=== PATIENT | female | born 1950 | race African-American/Black ===

== ENCOUNTER → 2016-08-06 | Outpatient (CLI) | payer MEDICARE ==
--- NOTE | ~2016-08-06 | EKG ---
PATIENT: ANGELINA EPSTEIN UNIT #: [id number] Ventricular Rate: 67 BPM Atrial Rate: 67 BPM P-R Interval: 158 ms QRS Duration: 88 ms Q-T Interval: 402 ms QTC Calculation(Bezet): 424 ms P [place]: 45 degrees Calculated R [place]: 1 degrees Calculated T [place]: 33 degrees Diagnosis Line: Normal sinus rhythm Diagnosis Line: Possible Left atrial enlargement Diagnosis Line: Borderline ECG Diagnosis Line: When compared with ECG of 29-AUG-2015 12:06, Diagnosis Line: No significant change was found Diagnosis Line: Confirmed by ACE STUBBS MD ([id number]) on Diagnosis Line: 08/06/2016 1:39:22 PM INTERPRETING MD: EVELYNE WYLIE
--- NOTE | ~2016-08-06 | CR63 ---
[facility] A Service of [facility] RADIOLOGY TEXT RESULTS PATIENT: ANGELINA EPSTEIN LOCATION: [facility] : 46 UNIT #: [id number] AGE: [address]: Braulio Anthony MD SEX: F ORDER DR: [id number] [address] [address] [id number] O MR#: [id number] Acc #: [id number] NAME: ANGELINA EPSTEIN : 1950 SEX: F STUDY DATE/TIME: 08/06/2016 8:17 UNIT: [facility] ROOM: STUDY DESCRIPTION: CR Chest 2 View Attending Physician: Braulio Anthony M.D. Referring Physician: Braulio Anthony M.D. Ordering Physician: Braulio Anthony M.D. Primary Care Physician: Braulio Anthony M.D. MEDICAL IMAGING REPORT This report is preliminary unless electronic signature is present. EXAMINATION PA and lateral chest. DATE 08/06/2016 HISTORY 65-year-old female with hyperlipidemia. Colon cancer. No documented current complaints. COMPARISON PA and lateral chest radiograph, 08/29/2015. FINDINGS No suspicious pulmonary nodules are seen. The lungs appear clear. Heart size within normal limits. Degenerative endplate spurring is present in the thoracic spine. No acute osseous abnormalities. IMPRESSION 1. No acute chest findings. No significant change compared to 08/29/2015. Dictated by... Brisa Calderon M.D. THIS IS AN ELECTRONICALLY VERIFIED REPORT Brisa Calderon M.D. at 08/09/2016 8:36 AM CAMMIE/debi TD: 08/06/2016 15:34 JOB #: [id number] [facility] A Service [facility] RADIOLOGY TEXT RESULTS PATIENT: ANGELINA EPSTEIN LOCATION: [facility] : 46 UNIT #: [id number] AGE: [address]: Braulio Anthony MD SEX: F ORDER DR: MEDICAL IMAGING REPORT Page 1 of 1
--- NOTE | ~2016-08-06 | MY11 ---
[facility] A Service of [facility] RADIOLOGY TEXT RESULTS PATIENT: ANGELINA EPSTEIN LOCATION: [facility] : 46 UNIT #: [id number] AGE: [address]: Braulio Anthony MD SEX: F ORDER DR: [id number] [address] [address] [id number] O MR#: [id number] Acc #: [id number] NAME: ANGELINA EPSTEIN : 1950 SEX: F STUDY DATE/TIME: 08/06/2016 9:44 UNIT: [facility] ROOM: STUDY DESCRIPTION: MY Mammogram Screening Dig Isaías Attending Physician: Braulio Anthony M.D. Referring Physician: Braulio Anthony M.D. Ordering Physician: Braulio Anthony M.D. Primary Care Physician: Braulio Anthony M.D. MEDICAL IMAGING REPORT This report is preliminary unless electronic signature is present. EXAM Digital screening mammogram, 08/06/2016 HISTORY A 65-year-old woman no risk elevation. Annual screening. COMPARISON STUDIES Mammograms date to 05/24/2008 with most recent 08/30/2014. FINDINGS Digital imaging of each breast was completed utilizing a two-view examination of each breast in craniocaudal and mediolateral-oblique projections. Review and interpretation of digital mammograms include a second review in conjunction with FDA-approved CAD device. There is a normal parenchymal presentation bilaterally consistent with the patient's age. There are no breast masses imaged and no parenchymal asymmetry is visualized. There are no suspicious microcalcifications and I see no focal architectural disturbance. IMPRESSION Negative screening digital mammogram. One-year followup recommended. Patients over the age of 40 are entered into a reminder system with target due date for the next mammogram. A result letter will also be sent to the patient. BIRADS: 1 Negative Dictated by... [facility] A Service of [facility] RADIOLOGY TEXT RESULTS PATIENT: ANGELINA EPSTEIN LOCATION: [facility] : 46 UNIT #: [id number] AGE: [address]: Braulio Anthony MD SEX: F ORDER DR: Kaleb Pradhan M.D. THIS IS AN ELECTRONICALLY VERIFIED REPORT Kaleb Pradhan M.D. at 08/06/2016 1:11 PM Edward TD: 08/06/2016 12:55 JOB #: [id number] MEDICAL IMAGING REPORT Page 1 of 1
[2016-08-06 08:16] LABS: HEMATOCRIT 41.2 % (35.0-45.0); HEMOGLOBIN 13.9 gm/dL (12.0-16.0); MEAN CELL VOLUME 84.4 FL (83-96); MEAN CORPUSCULAR HEMOGLOBIN 28.5 PG (28-34); MEAN CORPUSCULAR HGB CONC 33.7 g/dL (30-36); MEAN PLATELET VOLUME 6.8 FL (6.5-11.5); RED BLOOD COUNT 4.88 X10e (3.90-5.30); WHITE BLOOD COUNT 7.4 X10e3 (4.0-10.5)
[2016-08-06 09:04] LABS: ALBUMIN SERUM 4.3 g/dL (3.5-5.0); BILIRUBIN,TOTAL 0.4 mg/dL (0.2-2.0); BUN/CREATININE RATIO 17.5; CREATININE SERUM 0.8 mg/dL (0.6-1.4); GLOM FILT RATE Estimated 88.5 mL/min (>60); POTASSIUM 3.9 mmol/L (3.5-5.1); PROTEIN TOTAL SERUM 7.7 g/dL (6.0-8.3)
== END | disposition home or self-care (01) ==
LOC: SMAM 07:56
PROVIDERS: Internal Medicine
DX: Z12.31 Encounter for screening mammogram for malignant neoplasm of breast (principal); I10 Essential (primary) hypertension; E78.5 Hyperlipidemia, unspecified
CPT/HCPCS: 36415; 71020; 80053; 80061; 84443; 85027; 93005; G0202